=== PATIENT | male | born 1970 | race Caucasian/White ===

== ENCOUNTER 2016-07-14 21:35 | Emergency (ER) | payer MEDICAID | END 2016-07-14 22:40 | disposition home or self-care (01) | LOC: CED 21:35 | DX: G43.909 Migraine, unspecified, not intractable, without status migrainosus (principal); F17.210 Nicotine dependence, cigarettes, uncomplicated; Z88.8 Allergy status to other drugs, medicaments and biological substances; Z98.890 Other specified postprocedural states | CPT/HCPCS: 36415; 96374; 96375; 99284; J0780; J1200; J1885 ==